=== PATIENT | female | born 1985 | race Caucasian/White ===

== ENCOUNTER 2018-04-13 15:50 | Emergency (ER) | payer OTHER ==
[~2018-04-13] VITALS: Ht 152.4 cm; Wt 67.3 kg
[2018-04-13 16:10] VITALS: BP 148/89; TEMP 98.2
[2018-04-13 17:23] VITALS: PULSE 78
== END 2018-04-13 17:23 | disposition home or self-care (01) ==
LOC: COL.ER 15:50
DX: S06.339A Contusion and laceration of cerebrum, unspecified, with loss of consciousness of unspecified duration, initial encounter (principal); W19.XXXA Unspecified fall, initial encounter; Y92.830 Public park as the place of occurrence of the external cause; Y93.21 Activity, ice skating